=== PATIENT | female | born 1960 | race Caucasian/White ===

== ENCOUNTER 2024-05-19 10:57 | Outpatient (RCR) | payer OTHER, SELFPAY | END 2024-05-23 23:59 | disposition home or self-care (01) | LOC: SCTC 10:57 | PROVIDERS: PCP Family Medicine; Referring Provider Family Medicine; Visit Provider Nurse Practitioner Family | DX: Z08 Encounter for follow-up examination after completed treatment for malignant neoplasm (principal); Z85.038 Personal history of other malignant neoplasm of large intestine; R91.1 Solitary pulmonary nodule; Z92.3 Personal history of irradiation; Z92.21 Personal history of antineoplastic chemotherapy; Z87.891 Personal history of nicotine dependence | CPT/HCPCS: 99212; G0463 ==

== ENCOUNTER 2024-11-17 10:59 | Outpatient (RCR) | payer OTHER, BC, SELFPAY ==
--- NOTE | 2024-11-24 04:31 | CTCFLWUP_ITS ---
Patient: AUGUSTIN DEWEY : 1960 Page 4 of 6 FOLLOW UP NOTE DATE OF SERVICE: 11/17/2024 NAME: AUGUSTIN DEWEY ACCOUNT: [id number] : 1960 AGE: 64 INTERVAL HISTORY: Patient is here for follow-up. Complains of fatigue and tiredness. Patient also have episodes of lightheadedness. No seizures or loss of consciousness. Do not have any weight loss or appetite changes. ONCOLOGY HISTORY:?[facility] Hx? PT 3, N0 rectal adenocarcinoma status post surgery (08/07/2018). Status post chemoradiation in the adjuvant setting. Completed 4 months of adjuvant Capecitabine (10/16/2019) Stable right upper lobe pulmonary nodule measuring 10 mm in size DIAGNOSIS: Malignant neoplasm of rectosigmoid junction [ICD10] C19?[facility] Dx? DATE OF DIAGNOSIS: 08/07/2018 STAGE/TNM: PT 3, N0 rectal adenocarcinoma status post surgery (08/07/2018). TREATMENT HISTORY: Care?Plan Start?Date Cycle Day Intent CapOX?adj?8?cycles?3?ninfa 06/23/2019 1 21 Curative?(adjuvant) HISTORY OF PRESENT ILLNESS: Augustin Dewey is a 64-year-old ENG speaking female with history of diabetes and hypertension has the following oncology history. 07/17/2018: She had colonoscopy due to lower abdominal pain and rectal bleeding. Colonoscopy showed sigmoid colon mass. Biopsies taken from the mass showed invasive well-differentiated adenocarcinoma with ulceration. No loss of mismatch repair protein expression on IHC staining. 07/25/2018: CT scan of the abdomen and pelvis with IV contrast? Retrocaval 9 mm lymph node, more caudad 6 mm lymph node.Para-aortic 4 mm, 5 mm, 9 mm lymph nodes.9 mm left common iliac lymph node.11 mm right common iliac lymph node Multiple small lymph nodes in the pelvis adjacent to the sigmoid colon, in the 2 to 14 mm range. No bowel obstruction Significant wall thickening in the sigmoid colon, axial image 139 over a distance of 6.6 cm. 08/07/2018: Patient underwent en bloc resection of rectosigmoid with supra cervical hysterectomy, bilateral salpingo-oophorectomy. 11/03/2018: PET CT scan?8mm non hypermetabolic noncalcified pulmonary nodule right upper lobe Differential would include early metastatic pulmonary nodule, lung carcinoma This nodule would be amenable to CT-guided percutaneous lung biopsy No hypermetabolic retroperitoneal adenopathy 11/04/2018: CT-guided biopsy of right upper lobe lesion was requested. The radiologist at [facility] decided not to biopsy who recommended repeating the scans in about a month. 12/24/2018?02/05/2019: Patient was treated with adjuvant chemoradiation. For the chemotherapy she is on Capecitabine. 03/24/2019: Patient was seen at [facility]?recommendation is to treat her with Capecitabine in the adjuvant setting for 4 months. 04/14/2019: CT scan of the chest abdomen and pelvis with IV contrast?stable 8 mm pulmonary nodule in the right upper lobe. 06/05/2019?10/15/2019: Patient completed 4 months (6 cycles) of adjuvant Capecitabine. 12/19/2019: CT-guided biopsy of the right upper lobe nodule? 07/23/2020: PET CT scan? 04/06/2021: CEA 1.3. 11/25/2021: PET/CT scan? 03/22/2022: CEA 1.7. 07/06/2022: CT scan of the chest without IV contrast 01/05/2023: CT scan of the chest without contrast 10/02/2023: CT scan of the chest without IV contrast OTHER MEDICAL HISTORY/CONDITIONS: Hypertension Diabetes FAMILY HISTORY: ?Clone Family Hx? SOCIAL HISTORY: 20-year smoking history SNACK STEWARDESS HISTORY: Vaginal?Bleeding:?0-None ?Clone SNACK STEWARDESS Hx? MEDICATIONS: 1. Lantus - 150 Unit 2. metoprolol succinate - 50 mg 1 tab Daily 3. Mounjaro - 2.5 mg/0.5 mL 1 Weekly 4. valsartan - 80 mg 1 tab As directed?Palabra Meds? Medications Last Reconciled by Alaina Ba MA on 11/17/2024 ALLERGIES: No Known Drug Allergies REVIEW OF SYSTEMS: A complete 14-point review of systems was performed and is negative except as noted in interval history. PHYSICAL EXAMINATION:?[facility] PE? VITAL SIGNS: Temperature?98.2, B/P?171/76, Oxygen?Saturation?97% Weight?237?lbs PAIN: 0 - No pain ECOG Performance Status: 1 - Symptomatic; ambulatory; restricted in strenuous activity GENERAL APPEARANCE: Appears well, in no apparent distress, appropriately interactive. HEENT: Normocephalic, no temporal wasting, normal conjunctiva, no scleral icterus, normal hearing, lips without lesions, neck normal range of motion. CARDIOVASCULAR: Not assessed. PULMONARY: Normal respiratory effort, no respiratory distress or use of accessory muscles, speaking in full sentences, no tachypnea. EXTREMITIES: No pedal edema or cyanosis. SKIN: Normal skin appearance. NEUROLOGIC: Alert and oriented x4. PSHYCHIATRIC: Appropriate affect, mood normal, behavior normal, intact thought and speech. LABORATORY DATA: I have personally reviewed and interpreted each of the patient?s relevant lab tests, abnormal findings are below: Date 06/13/19 11/17/19 ??WHITE?BLOOD?COUNT?(Thou/mm3) 3.2?L ? ??RED?BLOOD?COUNT?(Miln/mm3) 5.31?H ? ??HEMOGLOBIN?(gm/dl) 15.1 ? ??HEMATOCRIT?(%) 44.9 ? ??PLATELET?COUNT?(Thou/mm3) 150 ? ??NEUTROPHILS?%,?AUTO?(%) 65 ? ??LYMPH?%,?AUTO?(%) 23 ? ??NEUTROPHILS,?AUTO?(Thou/mm3) 2.1 ? ??GLUCOSE,RANDOM?(mg/dL) 380?H 277?H ??BLOOD?UREA?NITROGEN?(mg/dL) 20 24?H ??CREATININE?(mg/dL) 1.00 0.80 ??SODIUM?(mmol/L) 135?L 137 ??POTASSIUM?(mmol/L) 3.8 3.8 ??CHLORIDE?(mmol/L) 96?L 100 ??CrCl?(CandG)?(ml/min) 104.53 132.73 ??AST/SGOT?(Unit/L) 39?H 60?H ??ALT/SGPT?(Unit/L) ? 46 ??ALKALINE?PHOSPHATASE?(Unit/L) 51 46 ??BILIRUBIN,?TOTAL?(mg/dL) 0.6 1.1 ??PROTEIN?TOTAL?(gm/dl) 6.1 6.8 ??ALBUMIN,?SERUM?(gm/dl) 3.9 4.2 ??GLOBULIN?(gm/dl) 2.2?L 2.6 ??ALBUMIN/GLOBULIN?RATIO 1.8 1.6 ??CALCIUM,?SERUM?(mg/dL) 8.5 8.9 ??CALCIUM?SERUM?(CORRECTED)?(mg/dL) 8.6 8.9 ??CEA?(O*)?(ng/ml) 0.8 ? ASSESSMENT/PLAN:?Kathrine Mooreinder Assessment/Plan? 1. PT 3, N0 rectal adenocarcinoma status post surgery (08/07/2018). Status post chemoradiation in the adjuvant setting. Completed 4 months of adjuvant Capecitabine (10/16/2019) Stable right upper lobe pulmonary nodule measuring [address] chest done on 10/02/2023 showed stable 10 mm pulmonary nodule, no new pulmonary nodules. PET CT scan done on 11/25/2021 showed 9 mm non-hypermetabolic pulmonary nodule in the right upper lobe. Right upper lobe lung nodule biopsy carcinoma, 12/19/2019. History of cigarette smoking in the past, 20 years. CEA <2.00, 04/29/2024. Patient follows up with GI regularly. No clinical evidence of recurrence. Will checkwith naterra 2. Polycythemia Patient has elevated hematocrit As malignancies can lead to elevated hematocrit Will do scan to evaluate for any malignant disease and to evaluate for metastasis or recurrence of cancer Will also check for underlying JAK2 mutation and other causes of polycythemia Will start with a phlebotomy after repeating her labs to keep hematocrit below 45 Will also do sleep study to evaluate for secondary cough polycythemia Patient gives a history of fatigue tiredness on waking up and frequently snores at night as noted by family members Patient have a body habitus which puts her at high risk of obstructive sleep apnea CBC CMP CEA ORDERS: Order # Description [id number] [facility] Hereditary Cancer Test [id number] + CEA [id number] Abdomen and Pelvis + With W/O Contrast [id number] PARUL - 2 Mutation Quant [id number] MD Follow Up 2 Months [id number] Therapeutic Phlebotomy, 1 Unit [id number] MD Follow Up 2 Months RETURN TO CLINIC: I reviewed the diagnosis, prognosis, and recommended treatment/procedure options with the patient (and/or their legal leather goods sales representative), including the potential benefits, risks, side effects and alternative therapies. We also discussed the option of no treatment and the possibility of clinical trial participation, if applicable. All questions were addressed, and they demonstrated understanding. They provided informed consent to proceed with the proposed plan of care. BILLING AND COMPLIANCE: I reviewed external records from providers outside my specialty as summarized above. I spent a total of 50 minutes on this patient?s care on the day of their visit excluding time spent related to any billed procedures. This time includes time spent with the patient as well as time spent documenting in the medical record, reviewing patients records and tests, obtaining history, placing orders, communicating with other healthcare professionals, counseling the patient, family or caregiver, and/or care coordination for the diagnoses above. Electronically Signed by: Craig Mantilla MD T: 4:29 AM CC: PCP: Stefan Encinas Referring: Stefan Encinas This document was completed utilizing speech recognition software. Grammatical errors, random word insertions, pronoun errors, and incomplete sentences are an occasional consequence of this system due to software limitations, ambient noise, and hardware issues. Any formal questions or concerns about the content, text or information contained within the body of this dictation should be directly addressed to the provider for clarification.
== END 2024-11-20 23:59 | disposition home or self-care (01) ==
LOC: SCTC 10:59
PROVIDERS: PCP Family Medicine; Referring Provider Family Medicine; Visit Provider Internal Medicine Hematology & Oncology
DX: C19 Malignant neoplasm of rectosigmoid junction (principal); R91.1 Solitary pulmonary nodule; D75.1 Secondary polycythemia; Z87.891 Personal history of nicotine dependence; Z92.3 Personal history of irradiation; Z92.21 Personal history of antineoplastic chemotherapy; Z80.3 Family history of malignant neoplasm of breast; Z80.42 Family history of malignant neoplasm of prostate; R63.4 Abnormal weight loss; Z68.35 Body mass index [BMI] 35.0-35.9, adult; Z63.79 Other stressful life events affecting family and household; Z71.89 Other specified counseling
CPT/HCPCS: 99212; G0463

== ENCOUNTER → 2024-12-23 | Outpatient (CLI) | payer OTHER, BC, SELFPAY ==
[2024-12-23 09:00] LABS: Misc Send Out* See Sep Rpt
[2024-12-23 09:44] LABS: Basophils # (Auto) 0.1 Thou/mm3 (0.0-0.2); Basophils % (Auto) 1 % (0-2.5); Eosinophils # (Auto) 0.1 Thou/mm3 (0.0-0.5); Eosinophils % (Auto) 2 % (0-10); Hematocrit 45.4 % (36.0-46.0); Hemoglobin 15.6 g/dL (12.0-16.0); Immature Granulocytes Auto 0.01 Thou/mm3 (0.00-0.00); Lymphocytes # (Auto) 1.7 Thou/mm3 (1.0-4.8); Lymphocytes % (Auto) 30 % (10-50); Mean Corpuscular HGB Conc 34.4 g/dl (31.0-37.0); Mean Corpuscular Hemoglobin 30.5 pg (25.0-35.0); Mean Corpuscular Volume 89 fL (80-100); Monocytes # (Auto) 0.3 Thou/mm3 (0.0-0.8); Monocytes % (Auto) 6 % (0-12); Neutrophils # (Auto) 3.5 Thou/mm3 (1.8-7.7); Neutrophils % (Auto) 62 % (37-80); Nucleated Red Blood Cell # 0.00 Thou/mm3 (0.00-0.00); Nucleated Red Blood Cell % 0 /100 WBC (0); Platelet Count 184 Thou/mm3 (140-440); RDW Standard Deviation 43.4 fL (36.4-46.3); Red Blood Count 5.12 Miln/mm3 (4.00-5.20); White Blood Count 5.7 Thou/mm3 (3.6-11.0)
[2024-12-23 10:00] LABS: Alanine Aminotransferase 42 U/L (10-49); Albumin, Serum 4.2 gm/dL (3.4-4.8); Albumin/Globulin Ratio 1.6 (1.2-2.2); Alkaline Phosphatase 37 U/L (46-116); Anion Gap 9 (7-16); Aspartate Amino Transferase 50 U/L (0-34); BUN/Creatinine Ratio 20 Ratio (12-20); Bilirubin,Total 0.7 mg/dL (0.3-1.2); Blood Urea Nitrogen 16 mg/dL (9-23); Calcium 10.3 mg/dL (8.3-10.6); Calcium (Corrected) 10.3 mg/dL (8.5-10.1); Carbon Dioxide 32.2 mMol/L (20.0-31.0); Carcinoembryonic Antigen 0.7 ng/mL (0.0-5.0); Chloride 101 mMol/L (98-107); Creatinine (Component) 0.8 mg/dL (0.6-1.3); Globulin 2.6 gm/dL (2.3-3.5); Glucose 122 mg/dL (74-106); Osmolality,Calculated 285 (275-295); Potassium 3.8 mMol/L (3.4-5.1); Sodium 142 mMol/L (136-145); Total Protein 6.8 gm/dL (5.7-8.2); eGFR > 60 See Note
== END | disposition home or self-care (01) ==
LOC: COPL 08:31
PROVIDERS: PCP Family Medicine; Referring Provider Internal Medicine Hematology & Oncology; Visit Provider Internal Medicine Hematology & Oncology
DX: C19 Malignant neoplasm of rectosigmoid junction (principal)
CPT/HCPCS: 36415; 80053; 81219; 81270; 81279; 81339; 82378; 85025

== ENCOUNTER → 2024-12-24 | Outpatient (CLI) | payer OTHER, BC, SELFPAY ==
--- NOTE | 2024-12-24 09:00 | XR_ITS ---
Examination: CT abdomen, without intravenous contrast. CT pelvis, without intravenous contrast. CT abdomen, with intravenous contrast. CT pelvis, with intravenous contrast. 2-D sagittal coronal reconstructions. Date and time of exam:December 24, 2024 0923 hours, comparison PET/CT scan November 25, 2021 INDICATIONS: Diagnosis rectal cancer, 9 mm non hypermetabolic pulmonary nodule right upper lobe on PET CT scan November 25, 2021, restaging CTDI: vol (mGy) 40.2 DLP: (mGycm) 1934 Technique: Multiple 3.0 axial images of the abdomen and pelvis without intravenous contrast, 3.0 mm slice thickness. Multiple 3.0 postcontrast images abdomen and pelvis also obtained, post intravenous injection 60 cc [id number] 2-D sagittal and coronal reconstructions. Low dose protocols were performed. One or more of the following dose reduction techniques were used; automated exposure control, adjustment of the mA and/or KV according to patient size, use of iterative reconstruction technique. Findings: Diffuse fatty infiltration throughout the liver, no enhancing liver or splenic lesions No gallstones No pancreatic mass Normal adrenal glands No renal or ureteral calculi, no hydronephrosis 9 mm left lateral periaortic lymph node, axial image 128, not seen on the PET scan Aorta normal size No bowel obstruction No pelvic lymphadenopathy Rectosigmoid sutures No rectosigmoid tumor mass Contracted urinary bladder No pelvic mass Advanced degenerative disc disease L3-L4 IMPRESSION: 9 mm left lateral para-aortic lymph node, not seen on the PET/CT scan November 25, 2021, recommend 6 month follow-up CT abdomen pelvis with contrast
== END | disposition home or self-care (01) ==
LOC: CCTX 08:54
PROVIDERS: PCP Family Medicine; Referring Provider Internal Medicine Hematology & Oncology; Visit Provider Internal Medicine Hematology & Oncology
DX: C19 Malignant neoplasm of rectosigmoid junction (principal)
CPT/HCPCS: 74178; A4649; Q9967

== ENCOUNTER → 2024-12-29 | Outpatient (CLI) | payer OTHER, BC, SELFPAY ==
[2024-12-29 08:39] LABS: Basophils # (Auto) 0.0 Thou/mm3 (0.0-0.2); Basophils % (Auto) 1 % (0-2.5); Eosinophils # (Auto) 0.2 Thou/mm3 (0.0-0.5); Eosinophils % (Auto) 3 % (0-10); Hematocrit 46.1 % (36.0-46.0); Hemoglobin 15.6 g/dL (12.0-16.0); Immature Granulocytes Auto 0.02 Thou/mm3 (0.00-0.00); Lymphocytes # (Auto) 1.9 Thou/mm3 (1.0-4.8); Lymphocytes % (Auto) 34 % (10-50); Mean Corpuscular HGB Conc 33.8 g/dl (31.0-37.0); Mean Corpuscular Hemoglobin 30.2 pg (25.0-35.0); Mean Corpuscular Volume 89 fL (80-100); Monocytes # (Auto) 0.3 Thou/mm3 (0.0-0.8); Monocytes % (Auto) 6 % (0-12); Neutrophils # (Auto) 3.2 Thou/mm3 (1.8-7.7); Neutrophils % (Auto) 57 % (37-80); Nucleated Red Blood Cell # 0.00 Thou/mm3 (0.00-0.00); Nucleated Red Blood Cell % 0 /100 WBC (0); Platelet Count 183 Thou/mm3 (140-440); RDW Standard Deviation 43.4 fL (36.4-46.3); Red Blood Count 5.16 Miln/mm3 (4.00-5.20); White Blood Count 5.7 Thou/mm3 (3.6-11.0)
[2024-12-29 09:01] LABS: Alanine Aminotransferase 39 U/L (10-49); Albumin, Serum 4.0 gm/dL (3.4-4.8); Albumin/Globulin Ratio 1.5 (1.2-2.2); Alkaline Phosphatase 36 U/L (46-116); Anion Gap 11 (7-16); Aspartate Amino Transferase 51 U/L (0-34); BUN/Creatinine Ratio 20 Ratio (12-20); Bilirubin,Total 1.0 mg/dL (0.3-1.2); Blood Urea Nitrogen 18 mg/dL (9-23); Calcium 9.6 mg/dL (8.3-10.6); Calcium (Corrected) 9.6 mg/dL (8.5-10.1); Carbon Dioxide 29.1 mMol/L (20.0-31.0); Chloride 102 mMol/L (98-107); Creatinine (Component) 0.9 mg/dL (0.6-1.3); Globulin 2.6 gm/dL (2.3-3.5); Glucose 125 mg/dL (74-106); Osmolality,Calculated 286 (275-295); Potassium 3.8 mMol/L (3.4-5.1); Sodium 142 mMol/L (136-145); Total Protein 6.6 gm/dL (5.7-8.2); eGFR > 60 See Note
== END | disposition home or self-care (01) ==
LOC: SCTO 07:53
PROVIDERS: PCP Family Medicine; Referring Provider Nurse Practitioner Family; Visit Provider Nurse Practitioner Family
DX: C19 Malignant neoplasm of rectosigmoid junction (principal)
CPT/HCPCS: 36415; 80053; 85025

== ENCOUNTER 2025-01-12 13:13 | Outpatient (RCR) | payer OTHER, BC, SELFPAY ==
[2025-01-06 14:02] LABS: Basophils # (Auto) 0.0 Thou/mm3 (0.0-0.2); Basophils % (Auto) 1 % (0-2.5); Eosinophils # (Auto) 0.1 Thou/mm3 (0.0-0.5); Eosinophils % (Auto) 3 % (0-10); Hematocrit 43.1 % (36.0-46.0); Hemoglobin 14.8 g/dL (12.0-16.0); Immature Granulocytes Auto 0.02 Thou/mm3 (0.00-0.00); Lymphocytes # (Auto) 2.0 Thou/mm3 (1.0-4.8); Lymphocytes % (Auto) 36 % (10-50); Mean Corpuscular HGB Conc 34.3 g/dl (31.0-37.0); Mean Corpuscular Hemoglobin 30.0 pg (25.0-35.0); Mean Corpuscular Volume 87 fL (80-100); Monocytes # (Auto) 0.3 Thou/mm3 (0.0-0.8); Monocytes % (Auto) 5 % (0-12); Neutrophils # (Auto) 3.0 Thou/mm3 (1.8-7.7); Neutrophils % (Auto) 55 % (37-80); Nucleated Red Blood Cell # 0.00 Thou/mm3 (0.00-0.00); Nucleated Red Blood Cell % 0 /100 WBC (0); Platelet Count 167 Thou/mm3 (140-440); RDW Standard Deviation 41.3 fL (36.4-46.3); Red Blood Count 4.93 Miln/mm3 (4.00-5.20); White Blood Count 5.4 Thou/mm3 (3.6-11.0)
[2025-01-12 14:02] LABS: Basophils # (Auto) 0.0 Thou/mm3 (0.0-0.2); Basophils % (Auto) 1 % (0-2.5); Eosinophils # (Auto) 0.1 Thou/mm3 (0.0-0.5); Eosinophils % (Auto) 2 % (0-10); Hematocrit 41.8 % (36.0-46.0); Hemoglobin 14.7 g/dL (12.0-16.0); Immature Granulocytes Auto 0.01 Thou/mm3 (0.00-0.00); Lymphocytes # (Auto) 1.7 Thou/mm3 (1.0-4.8); Lymphocytes % (Auto) 27 % (10-50); Mean Corpuscular HGB Conc 35.2 g/dl (31.0-37.0); Mean Corpuscular Hemoglobin 30.5 pg (25.0-35.0); Mean Corpuscular Volume 87 fL (80-100); Monocytes # (Auto) 0.4 Thou/mm3 (0.0-0.8); Monocytes % (Auto) 6 % (0-12); Neutrophils # (Auto) 4.0 Thou/mm3 (1.8-7.7); Neutrophils % (Auto) 65 % (37-80); Nucleated Red Blood Cell # 0.00 Thou/mm3 (0.00-0.00); Nucleated Red Blood Cell % 0 /100 WBC (0); Platelet Count 170 Thou/mm3 (140-440); RDW Standard Deviation 41.0 fL (36.4-46.3); Red Blood Count 4.82 Miln/mm3 (4.00-5.20); White Blood Count 6.2 Thou/mm3 (3.6-11.0)
== END 2025-01-20 23:59 | disposition home or self-care (01) ==
LOC: SCTC 13:13
PROVIDERS: PCP Family Medicine; Referring Provider Family Medicine; Visit Provider Nurse Practitioner Family
DX: C19 Malignant neoplasm of rectosigmoid junction (principal); D75.1 Secondary polycythemia; Z92.3 Personal history of irradiation; Z92.21 Personal history of antineoplastic chemotherapy; R91.1 Solitary pulmonary nodule; Z80.3 Family history of malignant neoplasm of breast; E66.9 Obesity, unspecified; Z68.34 Body mass index [BMI] 34.0-34.9, adult; R20.0 Anesthesia of skin
CPT/HCPCS: 36415; 85025; 99212; G0463

== ENCOUNTER 2025-01-22 07:57 | Outpatient (RCR) | payer OTHER, BC, MEDICARE, SELFPAY | END 2025-02-20 23:59 | disposition home or self-care (01) | LOC: SCTC 07:57 | PROVIDERS: PCP Family Medicine; Referring Provider Family Medicine; Visit Provider Nurse Practitioner Family | DX: C19 Malignant neoplasm of rectosigmoid junction (principal) | CPT/HCPCS: 36415 ==

== ENCOUNTER 2025-03-11 08:53 | Outpatient (RCR) | payer MEDICARE, BC, SELFPAY ==
[2025-02-24 14:00] LABS: Basophils # (Auto) 0.0 Thou/mm3 (0.0-0.2); Basophils % (Auto) 1 % (0-2.5); Eosinophils # (Auto) 0.2 Thou/mm3 (0.0-0.5); Eosinophils % (Auto) 3 % (0-10); Hematocrit 42.4 % (36.0-46.0); Hemoglobin 14.9 g/dL (12.0-16.0); Immature Granulocytes Auto 0.01 Thou/mm3 (0.00-0.00); Lymphocytes # (Auto) 2.2 Thou/mm3 (1.0-4.8); Lymphocytes % (Auto) 34 % (10-50); Mean Corpuscular HGB Conc 35.1 g/dl (31.0-37.0); Mean Corpuscular Hemoglobin 30.0 pg (25.0-35.0); Mean Corpuscular Volume 86 fL (80-100); Monocytes # (Auto) 0.3 Thou/mm3 (0.0-0.8); Monocytes % (Auto) 5 % (0-12); Neutrophils # (Auto) 3.7 Thou/mm3 (1.8-7.7); Neutrophils % (Auto) 58 % (37-80); Nucleated Red Blood Cell # 0.00 Thou/mm3 (0.00-0.00); Nucleated Red Blood Cell % 0 /100 WBC (0); Platelet Count 189 Thou/mm3 (140-440); RDW Standard Deviation 40.6 fL (36.4-46.3); Red Blood Count 4.96 Miln/mm3 (4.00-5.20); White Blood Count 6.4 Thou/mm3 (3.6-11.0)
== END 2025-03-22 23:59 | disposition home or self-care (01) ==
LOC: SCTC 08:53
PROVIDERS: PCP Family Medicine; Referring Provider Family Medicine; Visit Provider Nurse Practitioner Family
DX: D75.1 Secondary polycythemia (principal); Z85.048 Personal history of other malignant neoplasm of rectum, rectosigmoid junction, and anus; E66.9 Obesity, unspecified; Z68.33 Body mass index [BMI] 33.0-33.9, adult; R20.0 Anesthesia of skin
CPT/HCPCS: 36591; 85025; 99195; 99212; G0463